=== PATIENT | female | born 1995 | race Caucasian/White ===

== ENCOUNTER 2017-09-23 21:15 | Emergency (ER) | payer OTHER ==
[~2017-09-23] VITALS: Ht 170.2 cm; Wt 59.3 kg
[2017-09-23 21:20] VITALS: TEMP 36.4; O2SAT 94; Ht 170.2 cm; Wt 59.3 kg
[2017-09-23] MEDS ORDERED: ONDANSETRON 4MG OD TAB PO ONE (21:30)
--- NOTE | 2017-09-23 21:35 | EMERGENCY ROOM VISIT NOTE ---
History Report prepared by Jaki: Diane Crow Under the Supervision of: Dr. Gloria Ribeiro D.O. 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 She states she drank 2 big glasses of wine before going to the [employer] but, she is "not a drinker." She also reports she is nauseous and has vomited twice. She denies any recent trauma. 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 Review of Systems See HPI for pertinent positives & negatives. A total of 10 systems reviewed and were otherwise negative. Family History No pertinent family history Social History Smoking Status: Unknown if Ever Smoked Smokeless Tobacco Use: Unknown Alcohol Use: occasionally Current/Historical Medications No Active Prescriptions or Reported Meds Allergies Coded Allergies: No Known Allergies (Unverified , 09/23/17) Physical Exam Vital Signs Date Time Temp Pulse Resp B/P (MAP) Pulse Ox O2 Delivery O2 Flow Rate FiO2 09/23/17 23:55 100 16 123/71 96 Room Air 09/23/17 23:15 84 16 90/51 99 Room Air 09/23/17 22:28 79 15 83/50 98 Room Air 09/23/17 21:25 98 09/23/17 21:20 36.4 97 18 100/61 94 Room Air 09/23/17 21:20 94 Room Air Physical Exam GENERAL: alert, well appearing, well nourished, no distress, non-toxic. Smells of EtOH. EYE EXAM: normal conjunctiva, PERRL and EOM's grossly intact OROPHARYNX: no exudate, no erythema, lips, buccal mucosa, and tongue normal and mucous membranes are moist NECK: supple, no nuchal rigidity, no adenopathy, non-tender LUNGS: Clear to auscultation. Normal chest wall mechanics HEART: no murmurs, S1 normal and S2 normal ABDOMEN: abdomen soft, non-tender, normo-active bowel sounds, no masses, no rebound or guarding. BACK: Back is symmetrical on inspection and there is no deformity, no midline tenderness, no CVA tenderness. SKIN: no rashes and no bruising UPPER EXTREMITIES: upper extremities are grossly normal. LOWER EXTREMITIES: No pitting edema. NEURO EXAM: Normal sensorium, cranial nerves II-XII grossly intact, normal speech, no gross weakness of arms, no gross weakness of legs. Medical Decision & Procedures Laboratory Results 09/23/17 21:59 Red Blood Count 4.57, Mean Corpuscular Volume 90.2, Mean Corpuscular Hemoglobin 31.3, Mean Corpuscular Hemoglobin Concent 34.7, Mean Platelet Volume 10.6, Neutrophils (%) (Auto) 60.2, Lymphocytes (%) (Auto) 30.1, Monocytes (%) (Auto) 7.6, Eosinophils (%) (Auto) 1.2, Basophils (%) (Auto) 0.5, Neutrophils # (Auto) 4.51, Lymphocytes # (Auto) 2.26, Monocytes # (Auto) 0.57, Eosinophils # (Auto) 0.09, Basophils # (Auto) 0.04 09/23/17 21:59 Test 09/23/17 21:52 09/23/17 21:59 Human Chorionic Gonadotropin, Qual POS (NEG) Human Chorionic Gonadotropin, Quant 128 mIU/mL White Blood Count 7.50 K/uL (4.8-10.8) Red Blood Count 4.57 M/uL (4.2-5.4) Hemoglobin 14.3 g/dL (12.0-16.0) Hematocrit 41.2 % (37-47) Mean Corpuscular Volume 90.2 fL (80-100) Mean Corpuscular Hemoglobin 31.3 pg (25-34) Mean Corpuscular Hemoglobin Concent 34.7 g/dl (32-36) Platelet Count 215 K/uL (130-400) Mean Platelet Volume 10.6 fL (7.4-10.4) Neutrophils (%) (Auto) 60.2 % Lymphocytes (%) (Auto) 30.1 % Monocytes (%) (Auto) 7.6 % Eosinophils (%) (Auto) 1.2 % Basophils (%) (Auto) 0.5 % Neutrophils # (Auto) 4.51 K/uL (1.4-6.5) Lymphocytes # (Auto) 2.26 K/uL (1.2-3.4) Monocytes # (Auto) 0.57 K/uL (0.11-0.59) Eosinophils # (Auto) 0.09 K/uL (0-0.5) Basophils # (Auto) 0.04 K/uL (0-0.2) RDW Standard Deviation 39.2 fL (36.4-46.3) RDW Coefficient of Variation 12.0 % (11.5-14.5) Immature Granulocyte % (Auto) 0.4 % Immature Granulocyte # (Auto) 0.03 K/uL (0.00-0.02) Anion Gap 9.0 mmol/L (3-11) Est Creatinine Clear Calc Drug Dose 119.3 ml/min Estimated GFR () 143.1 Estimated GFR (Non- 123.5 BUN/Creatinine Ratio 10.9 (10-20) Calcium Level 8.6 mg/dl (8.5-10.1) Ethyl Alcohol mg/dL 137.8 mg/dl (0-3) Laboratory results per my review. Medications Administered Medications (Trade) Dose Ordered Sig/Arash Route Start Time Stop Time Status Last Admin Dose Admin Ondansetron HCl (Zofran Odt) 4 mg ONE ONCE PO 09/23/17 21:30 09/23/17 21:32 DC 09/23/17 21:35 4 MG Potassium Chloride (Klor-Con M10) 40 meq NOW STAT PO 09/23/17 23:51 09/23/17 23:52 DC 09/23/17 23:54 40 MEQ ED Course 2127: The patient was evaluated in room B11. A complete history and physical exam was performed. 2129: Zofran Inj 4 mg PO 5: Patient awake and alert tolerating sips of p.o. Denies any pain or evolving symptoms. Denies any trauma earlier tonight. 0014: Patient awake and alert, discussed positive hCG. Patient states she has recently had a miscarriage. Informed her that she would need a repeat blood draw with her family doctor [employer]URAL G[employer] INSPECTOR to assure that the hCG cleared to 0. Medical Decision Differential diagnosis: Etiologies such as alcohol intoxication, toxicologic, infection, hypoglycemia, electrolyte abnormalities, cardiac sources, intracerebral event, neurologic, as well as others were entertained. I do not suspect occult trauma. Pt well appearing and cleared to sobriety with time. Tolerated po, had a steady gait, answering all questions appropriately. Pt with a sober ride with friends. Discussed obgyn f/u, she verbalized understanding. Discussed sx to watch/return for, she verbalized understanding. Medication Reconcilliation Current Medication List: was personally reviewed by me Blood Pressure Screening Patient's blood pressure: Normal blood pressure Blood pressure disposition: Did not require urgent referral Impression Primary Impression: Alcohol use with intoxication Additional Impression: Hypokalemia Scribe Attestation The scribe's documentation has been prepared under my direction and personally reviewed by me in its entirety. I confirm that the note above accurately reflects all work, treatment, procedures, and medical decision making performed by me. Departure Information Dispostion Home / Self-Care Prescriptions No Active Prescriptions or Reported Meds Referrals No Doctor, Assigned (PCP) Patient Instructions [facility] Additional Instructions Please do not drink until you are legally able. Please drink responsibly and in a safe location. Do not drink and drive. If you have any recurrent vomiting , develop headaches, abdominal pain, or you have any other new or concerning symptoms, please return to the emergency room. Please have your family doctor or metal polisher and buffer apprentice recheck the hormone level in your blood work. If you develop abnormal vaginal bleeding or discharge, pelvic pain or cramping, please return to the emergency room. Problem Qualifiers
[2017-09-23 22:07] LABS: BASO % 0.5 %; BASO ABS # 0.04 K/uL (0-0.2); EOS % 1.2 %; EOS ABS # 0.09 K/uL (0-0.5); HEMATOCRIT 41.2 % (37-47); HEMOGLOBIN 14.3 g/dL (12.0-16.0); IG# 0.03 K/uL (0.00-0.02); LYMPH % 30.1 %; LYMPH ABS # 2.26 K/uL (1.2-3.4); MEAN CELL VOLUME 90.2 fL (80-100); MEAN CORPUSCULAR HEMOGLOBIN 31.3 pg (25-34); MEAN CORPUSCULAR HGB CONC 34.7 g/dl (32-36); MEAN PLATELET VOLUME 10.6 fL (7.4-10.4); MONO % 7.6 %; MONO ABS # 0.57 K/uL (0.11-0.59); NEUT % 60.2 %; NEUT ABS # 4.51 K/uL (1.4-6.5); PLATELET COUNT 215 K/uL (130-400); RED CELL DISTRIBUTION WIDTH SD 39.2 fL (36.4-46.3)
[2017-09-23 22:39] LABS: CALCIUM 8.6 mg/dl (8.5-10.1); CREATININE 0.71 mg/dl (0.60-1.20); POTASSIUM 2.8 mmol/L (3.5-5.1)
[2017-09-23] MEDS ORDERED: POTASSIUM CHLORIDE 10 MEQ TABCR PO STA (23:51)
[2017-09-23 23:55] VITALS: BP 123/71; PULSE 100; O2SAT 96
== END 2017-09-24 00:15 | disposition home or self-care (01) ==
LOC: C.EDB 21:18
DX: F10.129 Alcohol abuse with intoxication, unspecified (principal); E87.6 Hypokalemia; R79.89 Other specified abnormal findings of blood chemistry